=== PATIENT | female | born 1990 | race African-American/Black ===

== ENCOUNTER 2017-04-07 09:52 | Emergency (ER) | payer OTHER ==
[~2017-04-07] VITALS: Ht 177.8 cm; Wt 86.2 kg
== END 2017-04-07 11:20 | disposition home or self-care (01) ==
LOC: CED 09:52
DX: S69.92XA Unspecified injury of left wrist, hand and finger(s), initial encounter (principal); F17.210 Nicotine dependence, cigarettes, uncomplicated; X58.XXXA Exposure to other specified factors, initial encounter; Y92.9 Unspecified place or not applicable
CPT/HCPCS: 99283